=== PATIENT | male | born 1945 | race Caucasian/White ===

== ENCOUNTER 2017-03-19 09:57 | Emergency (ER) | payer MEDICARE ==
[2017-03-19 10:45] VITALS: BP 153/65
--- NOTE | 2017-03-19 11:28 | UC ---
Throat Pain/Nasal Cr HPI - HPI Summary HPI Summary: 72 year old male with sinus pressure. has had this many times in the past. had sinus surgery [address] alberto and in the past this will persist and worsen and developing in to bronchitis and he does not want that to happen - History of Current Complaint Chief Complaint: UCRespiratory Stated Complaint: SINUS Time Seen by Provider: 03/19/17 10:28 Hx Obtained From: Patient Onset/Duration: Sudden Onset Severity: Mild Pain Intensity: 2 Pain Scale Used: 0-10 Numeric Cough: Productive - Allergies/Home Medications Allergies/Adverse Reactions: Allergies Allergy/AdvReac Type Severity Reaction Status Date / Time Latex Allergy Severe See Comment Verified 03/19/17 10:27 Sulfa Antibiotics Allergy Unknown Unknown Verified 03/19/17 10:27 Reaction Details Home Medications: Home Medications Dexlansoprazole (NF) [Dexilant (NF)] 60 mg PO DAILY 03/19/17 [History Confirmed 03/19/17] [place]-3 Fatty Acids [Fish Oil] 1,000 mg PO DAILY 03/19/17 [History Confirmed 10/27] PMH/Surg Hx/FS Hx/Imm Hx Previously Healthy: Yes - Surgical History Surgical History: Yes Surgery Procedure, Year, and Place: right ankle foreign object removal; prostate 05/2016 [facility] - Family History Known Family History: Positive: None, Diabetes - GM and 2 sisters. no heart disease - Social History Occupation: Retired Alcohol Use: Daily Alcohol Amount: 1-2 12 oz cans of beer & 2 glasses of wine Substance Use Type: Excessive Caffeine Substance Use Comment - Amount & Last Used: 4-6 cups daily Smoking Status (MU): Former Smoker Review of Systems Constitutional: Fatigue ENT: Nasal Discharge, Sinus Congestion, Sinus Pain/Tenderness Respiratory: Cough Is Patient Immunocompromised?: No All Other Systems Reviewed And Are Negative: Yes Physical Exam Triage Information Reviewed: Yes Appearance: Well-Appearing, No Pain Distress, Well-Nourished Vital Signs: Initial Vital Signs Temp 98.9 F 03/19/17 10:17 Pulse 79 03/19/17 10:17 Resp 18 03/19/17 10:17 BP 153/65 03/19/17 10:17 Pulse Ox 98 03/19/17 10:17 Vital Signs Reviewed: Yes Eye Exam: Normal ENT: Positive: Nasal congestion, Nasal drainage, TM dull, Sinus tenderness - maxillary Neck exam: Normal Respiratory Exam: Normal Musculoskeletal Exam: Normal Neurological Exam: Normal Psychological Exam: Normal Skin Exam: Normal Throat Pain/Nasal Course/Dx - Course Course Of Treatment: discussed odds of viral infection but he states has had this many times, aware of risks and wants to treat at this time with abx. PCN and amox does not work well per patient . aware of SE of abx . treat at this time. f/u pcp or ent - Differential Dx/Diagnosis Differential Diagnosis/HQI/PQRI: Sinusitis, Tonsillitis Provider Diagnoses: sinusitis Discharge - Discharge Plan Condition: Good Disposition: HOME Prescriptions: Cefdinir [Cefdinir 300 MG CAP] 300 mg PO BID #20 cap Patient Education Materials: Sinusitis (ED) Referrals: Non Staff,Doctor [Primary Care Provider] - 4 Days
== END 2017-03-19 11:17 | disposition home or self-care (01) ==
LOC: UCCORT 09:57
DX: J32.9 Chronic sinusitis, unspecified (principal); Z87.891 Personal history of nicotine dependence; Z88.2 Allergy status to sulfonamides
CPT/HCPCS: 99212; G0463